=== PATIENT | female | born 1955 | race Caucasian/White ===

== ENCOUNTER 2024-06-25 00:52 | Day surgery (SDC) | payer MEDICARE, SELFPAY ==
--- NOTE | 2024-06-17 17:39 | PM.IMHP ---
H&P: HPI History of Present Illness Date/Time: 06/17/24 17:39 Chief Complaint: urge incontinence Narrative: history of refractory urge incontinence. Successful trial of sacral neuromodulation with greater than 50% improvement Review of Systems Review of Systems: All systems reviewed & are unremarkable except as noted in HPI and below PMFSH Past Medical History Medical History History of stroke Surgical History Surgical History H/O pelvic surgery Hx of tonsillectomy S/P wrist surgery Family History Family History Father Family history of heart disease in male family member before age 55, Onset Age: 80 Patient's father is Mother Patient's mother is Other Family history of malignant neoplasm of cervix Social History Social History Smoking status: Never smoker Second hand tobacco smoke exposure: No Alcohol intake: current Substance use: never Substance use type: does not use Lack of Transportation: No Lack of Food: Never True Current Housing: I Have Housing Concerned About Future Housing: No Difficulty Paying Gas/Electric Bills: No Difficulty Paying for Meds: No Currently Unemployed: No Education: High School Diploma/GED Difficulty w/ Childcare or Family Care: No Meds Home Medications and Allergies Home Medications Medication Instructions Recorded Confirmed Type aspirin 81 mg tablet,delayed 81 mg PO DAILY 09/28/21 10/11/22 History release (Adult Aspirin Regimen) cholecalciferol (vitamin D3) 25 25 mcg PO DAILY 09/28/21 10/11/22 History mcg (1,000 unit) capsule zinc acetate 25 mg (zinc) capsule 25 mg PO DAILY 10/11/22 10/11/22 History Allergies Allergy/AdvReac Type Severity Reaction Status Date / Time No Known Allergies Allergy Verified 02/02/24 11:02 Exam Narrative: no acute distress normal breathing alert and oriented x3 Assessment and Plan Assessment and plan (1) Urge incontinence: Code(s): N39.41 - Urge incontinence Status: Acute Assessment and Plan: implantation of InterStim device
[2024-06-19 11:10] VITALS: BMI 19.0
--- NOTE | 2024-06-19 11:10 | PC.NURSE ---
Report to the Outpatient Waiting Room, entrance under the green pavilion located off [facility], at time _1130_ on date _[id number]_. Planned Procedure Time: _130pm_.? Time changes happen often and if your time is changed the preop area will call you the afternoon before. - You and your visitor will be asked to self-screen and do not enter if you have any COVID symptoms. Please call surgeon if you need to reschedule. - A mask is optional within the hospital at this time. Patients may have clear liquids (water, carbonated beverages, clear teas, apple juice) until 3 hours prior to surgery with a maximum of 20 ounces. - No food from midnight until time of surgery and no smoking Take only the following medications with a SIP of water on the morning of surgery: __None DO NOT STOP ANY OF YOUR OTHER PRESCRIPTION MEDICATIONS PRIOR TO SURGERY EXCEPT THE FOLLOWING Medications to discontinue per physician ____Aspirin stop today, Fish oil and vitamins stop [phone] Please no make-up, nail kittitian, hairspray, perfume, deodorant, or body powder the day of surgery.? No jewelry (including any body piercings) or valuables the day of surgery, leave them at home.? Please take a shower or bath the night before, or the morning of, surgery with an antibacterial soap.? Wear comfortable, loose fitting clothing.? - Jewelry must be removed prior to entering the operating room.? Rings and piercings that are not removed may be cut off. - The hospital will not accept responsibility for valuables.? - Please leave all valuables, including medications, at home the day of surgery. If you are going home after surgery, a licensed feeder driver must drive you home.? - NO public transportation without another adult if you receive anesthesia. - We recommend that an adult stay with you for 24 hours following discharge. - We also recommend that you do not drive, make important decision, drink alcoholic beverages, or take any drugs that were not prescribed by your health care provider for at least 24 hours after your discharge time. Follow any additional instructions given to you from your surgeon. Telephone instructions given to _Brenda__and asked if any additional questions and then verbalized understanding. Patient advised to call surgeon office or pre surgery nurse liaison [phone] if any additional questions
--- NOTE | ~2024-06-25 | XR_ITS ---
EXAMINATION: XR fluoroscopy no charge DATE: 06/25/2024 13:34 INDICATION: Neurostimulator implant phase 2. TECHNIQUE: 3 intraoperative fluoroscopic views of the were obtained. Pelvis was not present. Fluorosc opy exposure time was 33 seconds. COMPARISON: None. FINDINGS: There is no side marker. There is an electrode in the left S3 neural foramen. IMPRESSION: 1. Electrode in the left S3 neural foramen. Reviewed, dictated and finalized at location A.
--- NOTE | 2024-06-25 04:34 | WPDHPUPDATE1 ---
History and Physical Update Update Date/Time: 06/25/24 04:34 History and Physical has been reviewed, including an updated exam of the patient. There are NO changes in the patient's condition. Risks, benefits, and alternatives have been discussed and questions answered. Patient agrees to proceed with procedure.
--- NOTE | 2024-06-25 12:09 | P.PNAN_ITS ---
Anes - Initial Pre Proc Eval Procedure: Operation Date: 06/25/24 13:30 Proposed Procedures p Neurostimulator Implant Phase Two - Gene Hector MD Date/Time: 06/25/24 12:09 Surgeon: Gene Hector MD Pre Op Diagnosis: sensory urge incont Patient Data Age: 69 Gender: F Height: 1.73 m Weight: 56.8 kg Allergies Allergy/AdvReac Type Severity Reaction Status Date / Time No Known Allergies Allergy Verified 06/19/24 10:58 Home Medications Medication Instructions Recorded Confirmed Type aspirin 81 mg tablet,delayed 81 mg PO DAILY 09/28/21 06/19/24 History release (Adult Aspirin Regimen) cholecalciferol (vitamin D3) 25 25 mcg PO DAILY 09/28/21 06/19/24 History mcg (1,000 unit) capsule zinc acetate 25 mg (zinc) capsule 25 mg PO DAILY 10/11/22 06/19/24 History omega 0-dmm-gdb-fish oil 1,200 mg 1 cap PO DAILY 06/19/24 06/19/24 History (144 mg-216 mg) capsule (Fish Oil) Patient hx anesthesia problems: none Family hx anesthesia problems: none Results Review: All pre-operative results and documents have been reviewed as part of the pre- operative evaluation. [facility] Past Medical History Medical History History of stroke Surgical History Surgical History H/O pelvic surgery Hx of tonsillectomy S/P wrist surgery Family History Family History Father Family history of heart disease in male family member before age 55, Onset Age: 80 Patient's father is Mother Patient's mother is Other Family history of malignant neoplasm of cervix Social History Social History Smoking status: Never smoker Second hand tobacco smoke exposure: No Alcohol intake: current Substance use: never Substance use type: does not use Lack of Transportation: No Lack of Food: Never True Current Housing: I Have Housing Concerned About Future Housing: No Difficulty Paying Gas/Electric Bills: No Difficulty Paying for Meds: No Currently Unemployed: No Education: High School Diploma/GED Difficulty w/ Childcare or Family Care: No Living arrangements: with family Spiritual care concerns: No Anes - Eval Final PreProcedure Day of Procedure 06/25/24 12:09 Patient weight: normal Heart: regular rate and rhythm Lungs: clear to auscultation and normal air movement Airway: Mallampati scale class II Neurological: alert and oriented Last oral intake: >/= 8 hours ASA classification: III Emergent: no Anesthetic plan: proceed Anesthesia type and monitoring: general GIVS and standard monitoring Results Review: All pre-operative results and documents have been reviewed as part of the pre- operative evaluation. Informed Consent: The patient's anesthetic plan and its attendant risks and benefits were discussed with the patient/family/POA. Questions were solicited and answers provided to the satisfaction of the patient/family/POA.
[2024-06-25 12:30] VITALS: BP 154/60; PULSE 66; RESP 14; TEMP 36.4; O2SAT 100
[2024-06-25] MEDS: LACTATED RINGERS 1,000 ML 30 ML IV CONT (12:30)
[2024-06-25] MEDS: ceFAZolin 2 GM/D5W 50 ML 2 GM/50 ML BAG IVPB (12:54)
[2024-06-25] MEDS: ceFAZolin SODIUM 1 GM VIAL (13:31)
[2024-06-25] MEDS: LIDO 1%/EPINEPHRINE 1:100,000 50 ML VIAL 30 ML INFILTRATE (13:32)
[2024-06-25 13:36] VITALS: BP 125/87; PULSE 64; RESP 16; O2SAT 100
--- NOTE | 2024-06-25 13:44 | W.PM.PROC2 ---
Procedure Note - Detailed Date of Procedure 06/25/24 Pre-op Diagnosis sensory urge incont Post-op Diagnosis Same Procedure Performed Implantation of sacral lead 05746 Placement of implantable pulse generator [id number] Complex neurostimulator programming impedance check [id number] Surgeon Gene Hector MD Anesthesia MAC and Local Indications This is a patient with refractory urge urinary incontinence. They have undergone a successful trial of sacral nerve stimulation. They present today for permanent implantation. They understand the risks of bleeding, infection, decreased efficacy, need for revision and battery changes. They agree to proceed Findings See dictated Description of Procedure They were correctly identified and informed consent was obtained. There brought to the operating room. There placed in the prone position. There given appropriate perioperative antibiotics. A time-out performed. I used fluoroscopy to abdirizak out my sacral landmarks in the AP and the lateral orientation. I anesthetized the skin. I entered the S3 foramen. I monitored the needle with fluoroscopy. I got appropriate Gabriel and toe response at a low threshold. I made a skin milena. I placed a stylet. I placed the lead introducer sheath. I then placed and deployed to my lead. I got appropriate responses again at a low threshold. I marked out the site of the pulse generator. I anesthetized the skin and made that incision. I created a subcutaneous pocket to house the pulse generator. I tunneled the lead towards this pocket. Appropriate connections were made between the lead and the battery. It was placed in the pocket. It was programmed and impedances were checked and found to be normal. I irrigated out all wounds. I ensured hemostasis. I closed the subcutaneous tissues with 2 Vicryl. I closed the skin with 4 0 Vicryl. Glue was applied. There then awakened and transferred to the PACU in stable condition. Implants Sacral neurostimulator Estimated Blood Loss 5 Drains No Packing No Pathology None sent Condition Stable Disposition PACU
[2024-06-25 14:05] VITALS: BP 173/65; PULSE 68; RESP 16
== END 2024-06-25 14:30 | disposition home or self-care (01) ==
PROVIDERS: PCP Family Medicine; Visit Provider Urology
PROC: (CPT 64561; principal; 2024-06-25 13:30)
DX: N39.41 Urge incontinence (principal); Z79.82 Long term (current) use of aspirin; Z98.890 Other specified postprocedural states; Z86.73 Personal history of transient ischemic attack (TIA), and cerebral infarction without residual deficits; Z80.49 Family history of malignant neoplasm of other genital organs; Z82.49 Family history of ischemic heart disease and other diseases of the circulatory system
CPT/HCPCS: 64561; 64590; 99199; C1767; C1778; C1787; J0690; J2003; J2004; J2704; J3010; J7120